=== PATIENT | female | born 1975 | race Caucasian/White ===

== ENCOUNTER → 2021-03-09 08:34 | Outpatient (CLI) | payer OTHER | END | disposition home or self-care (01) | LOC: LAB 08:34 | PROVIDERS: ATTEND Obstetrics & Gynecology Gynecology | DX: R10.2 Pelvic and perineal pain (principal); D50.0 Iron deficiency anemia secondary to blood loss (chronic); N30.00 Acute cystitis without hematuria; N30.01 Acute cystitis with hematuria; E11.9 Type 2 diabetes mellitus without complications; I70.0 Atherosclerosis of aorta; E78.2 Mixed hyperlipidemia; K62.5 Hemorrhage of anus and rectum; Z12.11 Encounter for screening for malignant neoplasm of colon ==

== ENCOUNTER 2021-03-16 07:52 | Outpatient (CLI) | payer OTHER | END 2021-03-16 07:55 | disposition home or self-care (01) | LOC: MAMO-SONO 07:52 | PROVIDERS: ATTEND Obstetrics & Gynecology Gynecology | DX: D24.1 Benign neoplasm of right breast (principal); D24.2 Benign neoplasm of left breast; N64.4 Mastodynia; Z12.31 Encounter for screening mammogram for malignant neoplasm of breast ==

== ENCOUNTER → 2021-03-16 08:03 | Outpatient (CLI) | payer OTHER | END | disposition home or self-care (01) | LOC: LAB 08:03 | PROVIDERS: ATTEND Obstetrics & Gynecology Gynecology | DX: R10.2 Pelvic and perineal pain (principal); D50.0 Iron deficiency anemia secondary to blood loss (chronic); N30.00 Acute cystitis without hematuria; N30.01 Acute cystitis with hematuria; E11.9 Type 2 diabetes mellitus without complications; I10 Essential (primary) hypertension; E78.2 Mixed hyperlipidemia; K62.5 Hemorrhage of anus and rectum; Z12.11 Encounter for screening for malignant neoplasm of colon ==

== ENCOUNTER 2021-05-06 10:06 | Emergency (ER) | payer OTHER ==
[~2021-05-06] VITALS: Ht 172.7 cm; Wt 99.8 kg
[2021-05-06] MEDS ORDERED: [UNRECOGNIZED DRUG - OTHER] (10:14)
== END 2021-05-06 13:47 | disposition home or self-care (01) ==
LOC: ER 10:06
DX: R53.81 Other malaise (principal)

== ENCOUNTER 2021-10-13 08:07 | Outpatient (CLI) | payer OTHER ==
[~2021-10-13 08:07] MED LIST: [UNRECOGNIZED DRUG - OTHER]
== END 2021-10-13 08:21 | disposition home or self-care (01) ==
LOC: SONOGRAMA 08:07
PROVIDERS: ATTEND Internal Medicine Endocrinology, Diabetes & Metabolism
DX: E04.1 Nontoxic single thyroid nodule (principal)

== ENCOUNTER 2021-10-13 08:32 | Outpatient (CLI) | payer OTHER | END 2021-10-13 16:39 | disposition home or self-care (01) | LOC: LAB 08:32 | PROVIDERS: ATTEND Internal Medicine Endocrinology, Diabetes & Metabolism | DX: E03.9 Hypothyroidism, unspecified (principal); D64.9 Anemia, unspecified; E11.69 Type 2 diabetes mellitus with other specified complication; E78.2 Mixed hyperlipidemia; D55.9 Anemia due to enzyme disorder, unspecified; N39.0 Urinary tract infection, site not specified; D51.9 Vitamin B12 deficiency anemia, unspecified ==